=== PATIENT | female | born 1970 | race Caucasian/White ===

== ENCOUNTER 2017-01-14 13:13 | Emergency (ER) | payer BC ==
[~2017-01-14] VITALS: Ht 152.4 cm; Wt 69.5 kg
[~2017-01-14 13:13] MED LIST: CYCL1TAB29 PO; CYCL7.5T33 PO
[2017-01-14 13:30] VITALS: BP 149/88; PULSE 64; RESP 16; TEMP 98; O2SAT 98
[2017-01-14] MEDS ORDERED: KETOROLAC TROMETHAMINE 30 MG/ML (IVP) VIAL IV PUSH ONE (13:45)
[2017-01-14] MEDS ORDERED: SODIUM CHLORIDE 0.9% FLUSH 10 ML FLUSH IVF PRN (13:45)
--- NOTE | 2017-01-14 13:54 | PD ---
HPI . Chest pain Chief Complaint: Chest Pain Time Seen by Provider: 13:39 Travel History International Travel<30 days: No Contact w/Intl Traveler<30days: No Traveled to known affect area: No History of Present Illness HPI This patient presents with the chief complaint of left-sided chest pain. Other complaints include headache, neck pain, arm pain, left lower quadrant abdominal pain and nausea with vomiting 2. She states that she has taken several doses of ibuprofen and aspirin with no relief. She subsequently presented to us for treatment. Pain is rated 10/10. Pain is exacerbated by certain movements. Pain has been continuous since yesterday. She reports no known medical problems. She takes no medications and has no known drug allergies. [facility] Past Medical History Medical History: Denies Significant Hx Tetanus Vaccination: > 5 Years Influenza Vaccination: No ?: Not LMP: Mirena/doesn't have Past Surgical History Surgical History: No Previous Surgery Social History Alcohol Use: No Tobacco Use: No Substance Use: No Allergies-Medications (Allergen,Severity, Reaction): Coded Allergies: No Known Allergies (Unverified , 01/14/17) Reported Meds & Prescriptions Reported Meds & Active Scripts Active No Active Prescriptions or Reported Medications Review of Systems Except as stated in HPI: all other systems reviewed are Neg General / Constitutional: No: Fever, Chills Cardiovascular: Positive: Chest Pain or Discomfort Respiratory: No: Shortness of Breath Gastrointestinal: Positive: Nausea, Vomiting, Abdominal Pain, No: Diarrhea Musculoskeletal: Positive: Myalgias Physical Exam Narrative GENERAL: Awake and alert and in no distress. SKIN: warm/dry. HEAD: Normocephalic. Atraumatic. Positive scalp tenderness. EYES: Pupils equal and round. No scleral icterus. No injection or drainage. ENT: No nasal bleeding or discharge. Mucous membranes pink and moist. NECK: Trachea midline. Full range of motion without pain. Positive neck tenderness. CARDIOVASCULAR: Regular rate and rhythm. Heart sounds are normal. RESPIRATORY: No accessory muscle use. Clear to auscultation. Breath sounds equal bilaterally. Left-sided chest wall tenderness. GASTROINTESTINAL: Abdomen soft. Nontender. Bowel sounds present. Nondistended. MUSCULOSKELETAL: No obvious deformities. Left upper extremity tenderness. NEUROLOGICAL: Awake and alert. No obvious cranial nerve deficits. Motor grossly within normal limits. Normal speech. PSYCHIATRIC: Appropriate mood and affect; insight and judgment normal. Data Data Last Documented VS Vital Signs Date Time Temp Pulse Resp B/P (MAP) Pulse Ox O2 Delivery O2 Flow Rate FiO2 01/14/17 13:30 98.0 64 16 149/88 (108) 98 01/14/17 13:30 Room Air Orders Orders Basic Metabolic Panel (Bmp) (01/14/17 13:39) Ckmb (Isoenzyme) Profile (01/14/17 13:39) Complete Blood Count With Diff (01/14/17 13:39) Magnesium (Mg) (01/14/17 13:39) Troponin I (01/14/17 13:39) Chest, Single Ap (01/14/17 13:39) Ecg Monitoring (01/14/17 13:39) Iv Access Insert/Monitor (01/14/17 13:39) Oximetry (01/14/17 13:39) Sodium Chloride 0.9% Flush (Ns Flush) (01/14/17 13:45) Ketorolac Inj (Toradol Inj) (01/14/17 13:45) CKMB (01/14/17 14:10) CKMB% (01/14/17 14:10) Labs Laboratory Tests Test 01/14/17 13:30 01/14/17 14:10 White Blood Count 7.6 TH/MM3 Red Blood Count 4.31 MIL/MM3 Hemoglobin 13.2 GM/DL Hematocrit 40.0 % Mean Corpuscular Volume 92.8 FL Mean Corpuscular Hemoglobin 30.6 PG Mean Corpuscular Hemoglobin Concent 33.0 % Red Cell Distribution Width 12.5 % Platelet Count 217 TH/MM3 Mean Platelet Volume 9.3 FL Neutrophils (%) (Auto) 54.2 % Lymphocytes (%) (Auto) 35.5 % Monocytes (%) (Auto) 8.2 % Eosinophils (%) (Auto) 1.5 % Basophils (%) (Auto) 0.6 % Neutrophils # (Auto) 4.2 TH/MM3 Lymphocytes # (Auto) 2.7 TH/MM3 Monocytes # (Auto) 0.6 TH/MM3 Eosinophils # (Auto) 0.1 TH/MM3 Basophils # (Auto) 0.0 TH/MM3 CBC Comment DIFF FINAL Differential Comment Blood Urea Nitrogen 12 MG/DL Creatinine 0.79 MG/DL Random Glucose 83 MG/DL Calcium Level 8.3 MG/DL Magnesium Level 1.9 MG/DL Sodium Level 138 MEQ/L Potassium Level 3.8 MEQ/L Chloride Level 105 MEQ/L Carbon Dioxide Level 25.0 MEQ/L Anion Gap 8 MEQ/L Estimat Glomerular Filtration Rate 78 ML/MIN Total Creatine Kinase 300 U/L Creatine Kinase MB 4.7 NG/ML Creatine Kinase MB % 1.6 % Troponin I LESS THAN 0.02 NG/ML MDM Medical Decision Making Medical Screen Exam Complete: Yes Emergency Medical Condition: Yes Interpretation(s) EKG shows a normal sinus rhythm with no acute ischemic change. Differential Diagnosis Differential diagnosis of chest pain includes but is not limited to musculoskeletal pain, pulmonary embolism, acute coronary syndrome, pneumonia, pleurisy Narrative Course This patient presents for the evaluation of chest pain. She also has a headache , neck pain, left-sided abdominal pain and nausea/vomiting. She has had symptoms since yesterday. She makes ACS unlikely. Her symptoms are also exacerbated by movement which makes ACS unlikely. CBC Diagram 01/14/17 13:30 BMP Diagram 01/14/17 14:10 Calcium Level 8.3 L, Magnesium Level 1.9 CK 300, CKMB 4.7, CKMB % 1.6, trop <0.02 Chest x-ray to my interpretation is negative for infiltrate. Diagnosis Primary Impression: Musculoskeletal chest pain Scripts Cyclobenzaprine (Flexeril) 10 Mg Tab 10 MG PO TID for Muscle Spasm, #30 TAB 0 Refills Prov: Shelli Bennett MD 01/14/17 Tramadol (Ultram) 50 Mg Tab 50 MG PO Q4H Y for PAIN, #12 TAB 0 Refills Prov: Shelli Bennett MD 01/14/17 Disposition: 01 DISCHARGE HOME Condition: Stable Shelli Bennett MD Jan 14, 2017 13:54
[2017-01-14 13:57] LABS: AUTOMATED NEUTROPHIL # 4.2 TH/MM3 (1.8-7.7); BASOPHIL % 0.6 % (0.0-2.0); EOSINOPHIL # 0.1 TH/MM3 (0-0.4); EOSINOPHIL % 1.5 % (0.0-4.0); HEMO FLAGS DIFF FINAL; LYMPH % 35.5 % (9.0-44.0); LYMPHOCYTE # 2.7 TH/MM3 (1.0-4.8); MEAN CELL VOLUME 92.8 FL (80.0-100.0); MEAN CORPUSCULAR HEMOGLOBIN 30.6 PG (27.0-34.0); MONO % 8.2 % (0.0-8.0); NEUT % 54.2 % (16.0-70.0); PLATELET COUNT 217 TH/MM3 (150-450); RED BLOOD COUNT 4.31 MIL/MM3 (4.00-5.30); RED CELL DISTRIBUTION WIDTH 12.5 % (11.6-17.2); WHITE BLOOD COUNT 7.6 TH/MM3 (4.0-11.0)
[2017-01-14 14:34] LABS: CHLORIDE 105 MEQ/L (98-107); POTASSIUM 3.8 MEQ/L (3.5-5.1); SODIUM (NA) 138 MEQ/L (136-145)
[2017-01-14 14:37] LABS: ANION GAP 8 MEQ/L (5-15); BLOOD UREA NITROGEN 12 MG/DL (7-18); MAGNESIUM 1.9 MG/DL (1.5-2.5)
[2017-01-14 14:40] LABS: GLOMERULAR FILTRATION RATE 78 ML/MIN (>89)
[2017-01-14 14:43] LABS: CREATINE KINASE 300 U/L (26-192)
[2017-01-14 14:55] LABS: CKMB 4.7 NG/ML (0.5-3.6)
[2017-01-14] MEDS ORDERED: CYCL1TAB29 PO (15:04)
[2017-01-14] MEDS ORDERED: ULTR50TA5 PO (15:04)
[2017-01-14 15:10] VITALS: BP 105/61; PULSE 54; RESP 16; O2SAT 100
--- NOTE | 2017-01-14 15:12 | RADRPT ---
EXAM DATE/TIME: 01/14/2017 14:04 [facility] COMPARISON: No previous studies available for comparison. INDICATIONS : Left side chest pain. MEDICAL HISTORY : None. SURGICAL HISTORY : None. ENCOUNTER: Initial ACUITY: 2 days PAIN SCORE: 5/10 LOCATION: Left chest FINDINGS: A single view of the chest demonstrates the lungs to be symmetrically aerated without evidence of mas s, infiltrate or effusion. No evidence of pneumothorax. The cardiomediastinal contours are unremarka ble. Osseous structures are intact. CONCLUSION: The lungs are clear. Jaydon Bales MD on January 14, 2017 at 15:10 Board Certified Radiologist. This report was verified electronically.
--- NOTE | 2017-01-15 12:57 | EKG ---
Date Performed: 01/14/2017 Time Performed: 13:24:26 PTAGE: 46 years EKG: SINUS BRADYCARDIA BORDERLINE ECG INTERPRETATION BASED ON A DEFAULT AGE OF 39 YEARS NO PREVIOUS TRACING DOCTOR: Henrik Tay Interpretating Date/Time 01/15/2017 12:50:30
[2017-01-21] MEDS ORDERED: CYCL1TAB29 PO (14:43)
[2017-01-22] MEDS ORDERED: CYCL1TAB29 PO (10:21)
== END 2017-01-14 15:39 | disposition home or self-care (01) ==
LOC: PHED 13:13
DX: R07.89 Other chest pain (principal); R94.31 Abnormal electrocardiogram [ECG] [EKG]
CPT/HCPCS: 71010; 80048; 82550; 82552; 83735; 84484; 85025; 93005; 96374; 99285; J1885

== ENCOUNTER 2017-02-06 10:56 | Emergency (ER) | payer BC ==
[~2017-02-06] VITALS: Ht 152.4 cm; Wt 70.0 kg
[2017-02-06 10:56] VITALS: BP 132/84; PULSE 75; RESP 18; TEMP 98.6; O2SAT 100
[~2017-02-06 10:56] MED LIST changes: -CYCL7.5T33 PO
[2017-02-06] MEDS ORDERED: SODIUM CHLOR 0.9% 1000 ML INJ 1,000 ML IV ONE (11:00)
[2017-02-06] MEDS ORDERED: SODIUM CHLORIDE 0.9% FLUSH 10 ML FLUSH IVF PRN (11:00)
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
[2017-02-06 11:06] VITALS: O2SAT 100
[2017-02-06 11:11] LABS: AUTOMATED NEUTROPHIL # 4.5 TH/MM3 (1.8-7.7); BASOPHIL # 0.2 TH/MM3 (0-0.2); BASOPHIL % 3.4 % (0.0-2.0); EOSINOPHIL # 0.1 TH/MM3 (0-0.4); EOSINOPHIL % 1.3 % (0.0-4.0); HEMO FLAGS DIFF FINAL; LYMPHOCYTE # 1.7 TH/MM3 (1.0-4.8); MEAN CELL VOLUME 91.8 FL (80.0-100.0); MEAN CORPUSCULAR HEMOGLOBIN 30.5 PG (27.0-34.0); MEAN CORPUSCULAR HGB CONC 33.2 % (32.0-36.0); MONO % 9.1 % (0.0-8.0); NEUT % 62.2 % (16.0-70.0); PLATELET COUNT 214 TH/MM3 (150-450); RED BLOOD COUNT 4.03 MIL/MM3 (4.00-5.30); RED CELL DISTRIBUTION WIDTH 12.1 % (11.6-17.2); WHITE BLOOD COUNT 7.1 TH/MM3 (4.0-11.0)
[2017-02-06 11:19] LABS: CHLORIDE 104 MEQ/L (98-107); POTASSIUM 4.2 MEQ/L (3.5-5.1); SODIUM (NA) 137 MEQ/L (136-145)
[2017-02-06 11:22] VITALS: BP_SYST 104; BP_SYST 112; BP_SYST 121; BP_DIAS 66; BP_DIAS 69; BP_DIAS 79; RESP 16
[2017-02-06 11:23] LABS: ANION GAP 7 MEQ/L (5-15); BICARBONATE 25.9 MEQ/L (21.0-32.0); BLOOD UREA NITROGEN 18 MG/DL (7-18); MAGNESIUM 1.9 MG/DL (1.5-2.5)
[2017-02-06 11:26] LABS: ALT (GPT) 25 U/L (10-53); AST (GOT) 20 U/L (15-37); GLOMERULAR FILTRATION RATE 72 ML/MIN (>89)
[2017-02-06 11:27] LABS: TOTAL BILIRUBIN ADULT 0.5 MG/DL (0.2-1.0)
[2017-02-06 11:29] LABS: ALKALINE PHOSPHATASE 77 U/L (45-117); CREATINE KINASE 135 U/L (26-192)
[2017-02-06 11:41] LABS: CKMB 2.3 NG/ML (0.5-3.6)
--- NOTE | 2017-02-06 12:10 | EKG ---
Date Performed: 02/06/2017 Time Performed: 11:08:05 PTAGE: 46 years EKG: Sinus rhythm LOW QRS VOLTAGE IN PRECORDIAL LEADS Since previous tracing, no significant change noted BORDERLINE E CG PREVIOUS TRACING : 01/14/2017 13.24 DOCTOR: Alfonso Castle Interpretating Date/Time 02/06/2017 12:09:34
== END 2017-02-06 12:08 | disposition home or self-care (01) ==
LOC: PHED 10:56
DX: R55 Syncope and collapse (principal)
CPT/HCPCS: 80053; 82550; 82552; 83735; 84484; 85025; 93005; 96360; 99284; J7030

== ENCOUNTER 2017-02-21 20:58 | Emergency (ER) | payer BC ==
[~2017-02-21] VITALS: Ht 152.4 cm; Wt 68.7 kg
[2017-02-21 21:03] VITALS: BP 142/75; PULSE 73; RESP 18; TEMP 97.2; O2SAT 98
--- NOTE | 2017-02-21 22:10 | PD ---
HPI . Headache Chief Complaint: Headache Time Seen by Provider: 22:02 Travel History International Travel<30 days: No Contact w/Intl Traveler<30days: No Traveled to known affect area: No History of Present Illness HPI Patient presents with the chief complaint of headache. Onset was this morning. She has had 2 doses of Tylenol, 1 g each and one dose of ibuprofen, 400 mg all without relief of her headache. The headache has been getting gradually worse. It is associated with some nausea. No fever. No blurred vision. No photophobia. Pain rated 9/10. She states that she also had some left lower quadrant abdominal pain for a short period of time but it has now completely resolved. PFSH Past Medical History ?: Not LMP: MIRENA Past Surgical History Other Surgery: Yes (LOWER BACK SURGERY) Social History Alcohol Use: Yes (OCCAS) Tobacco Use: No Substance Use: No Allergies-Medications (Allergen,Severity, Reaction): Coded Allergies: No Known Allergies (Unverified , 02/21/17) Reported Meds & Prescriptions Reported Meds & Active Scripts Active Flexeril (Cyclobenzaprine HCl) 10 Mg Tab 10 Mg PO TID Review of Systems Except as stated in HPI: all other systems reviewed are Neg General / Constitutional: No: Fever, Chills Eyes: No: Blurred Vision, Photophobia HENT: Positive: Headaches Gastrointestinal: Positive: Nausea, Vomiting, Abdominal Pain Physical Exam Narrative GENERAL: Awake and alert and in no acute distress. SKIN: warm/dry. No rash or lesions. HEAD: Normocephalic. Atraumatic. No scalp tenderness. EYES: Pupils equal and round. No scleral icterus. No injection or drainage. ENT: No nasal bleeding or discharge. Mucous membranes pink and moist. NECK: Trachea midline. Full range of motion without pain. Supple. CARDIOVASCULAR: Regular rate and rhythm. RESPIRATORY: No accessory muscle use. Clear to auscultation. Breath sounds equal bilaterally. GASTROINTESTINAL: Abdomen soft. Nontender. Bowel sounds present. Nondistended. MUSCULOSKELETAL: No obvious deformities. NEUROLOGICAL: Awake and alert. No obvious cranial nerve deficits. Motor grossly within normal limits. Normal speech. PSYCHIATRIC: Appropriate mood and affect; insight and judgment normal. Data Data Last Documented VS Vital Signs Date Time Temp Pulse Resp B/P (MAP) Pulse Ox O2 Delivery O2 Flow Rate FiO2 02/21/17 23:20 74 16 112/72 (85) 100 Room Air 02/21/17 21:03 97.2 Orders Orders Iv Access Insert/Monitor (02/21/17 22:02) Sodium Chloride 0.9% Flush (Ns Flush) (02/21/17 22:15) Prochlorperazine Inj (Compazine Inj) (02/21/17 22:15) Diphenhydramine Inj (Benadryl Inj) (02/21/17 22:15) MDM Medical Decision Making Medical Screen Exam Complete: Yes Emergency Medical Condition: Yes Differential Diagnosis Differential diagnosis of headache includes but is not limited to migraine, muscle contraction headache, brain tumor, brain bleed Narrative Course This patient presents with a global headache. She'll be treated with Compazine and Benadryl. Headache is resolved. Diagnosis Primary Impression: Headache Qualified Codes: G44.209 - Tension-type headache, unspecified, not intractable Patient Instructions: Acute Headache (DC), General Instructions Disposition: 01 DISCHARGE HOME Condition: Stable Shelli Bennett MD Feb 21, 2017 22:10
[2017-02-21] MEDS ORDERED: diphenhydrAMINE HCL 50 MG/ML VIAL IVP ONE (22:15)
[2017-02-21] MEDS ORDERED: SODIUM CHLORIDE 0.9% FLUSH 10 ML FLUSH IVF PRN (22:15)
[2017-02-21] MEDS ORDERED: PROCHLORPERAZINE INJ 10 MG/2 ML VIAL IVP ONE (22:15)
[2017-02-21 23:20] VITALS: BP 112/72; PULSE 74; RESP 16; O2SAT 100
[2017-02-21 23:47] VITALS: BP 115/68
== END 2017-02-21 23:49 | disposition home or self-care (01) ==
LOC: PHED 20:58
DX: G44.209 Tension-type headache, unspecified, not intractable (principal)
CPT/HCPCS: 96374; 96375; 99284; J0780; J1200